=== PATIENT | female | born 1985 | race Caucasian/White ===

== ENCOUNTER 2019-06-30 16:32 | Emergency (ER) | payer OTHER ==
--- NOTE | 2019-06-30 18:13 | CT ---
CT cervical spine Technique: Multiple axial sections were obtained from above C1 inferiorly to the mid T2 level. Reconstructed sagittal and coronal images were obtained. Comparison: No prior cervical spine imaging is available. Findings: Vertebral body heights and disc spaces are maintained. No central canal stenosis or neural foraminal stenosis is seen. No fracture is seen. No abnormal subluxation is seen. Mucosal thickening is seen within both maxillary sinuses which is most likely chronic. Impression: 1. Sinus findings as described above. 2. Nothing acute is appreciated on CT study of the cervical spine. Diagnostic code #2 Study was dictated in [place] Standard Time
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
== END 2019-06-30 19:00 | disposition home or self-care (01) ==
LOC: JD.ED 16:32
DX: S13.9XXA Sprain of joints and ligaments of unspecified parts of neck, initial encounter (principal); V49.50XA Passenger injured in collision with unspecified motor vehicles in traffic accident, initial encounter
CPT/HCPCS: 72125; 72125-26; 99282; 99284-25

== ENCOUNTER 2021-08-26 20:27 | Emergency (ER) | payer SELFPAY ==
[2021-08-26] MEDS ORDERED: Lidocaine 1% with EPINEPHrine 1:100,000 10 ML MDV INJECT ONE (20:55)
[2021-08-26] MEDS ORDERED: Bupivacaine 0.5% 10 ML SDV INJECT ONE (20:55)
[2021-08-26] MEDS ORDERED: Lidocaine 1% with EPINEPHrine 1:100,000 20 ML MDV ONE (21:00)
[2021-08-26] MEDS ORDERED: Lidocaine 1% with EPINEPHrine 1:100,000 20 ML MDV INJECT ONE (21:05)
== END 2021-08-26 22:00 | disposition home or self-care (01) ==
LOC: JD.ED 20:27
DX: S91.311A Laceration without foreign body, right foot, initial encounter (principal); E66.9 Obesity, unspecified; Z68.36 Body mass index [BMI] 36.0-36.9, adult; W25.XXXA Contact with sharp glass, initial encounter
CPT/HCPCS: 12001; 99282; J3490